=== PATIENT | male | born 1990 | race Caucasian/White ===

== ENCOUNTER 2022-11-07 10:40 | Emergency (ER) | payer BC, MEDICAID ==
[2022-11-07 12:16] LABS: ESTIMATED GFR 124 mL/min (>60)
== END 2022-11-07 12:45 | disposition home or self-care (01) ==
LOC: JP.ED 10:40
DX: R20.2 Paresthesia of skin (principal); Z88.5 Allergy status to narcotic agent; Z72.0 Tobacco use
CPT/HCPCS: 36415; 80053; 83605; 85025; 86140; 99283; 99284

== ENCOUNTER 2022-12-11 09:01 | Emergency (ER) | payer OTHER, BC, MEDICAID | END 2022-12-11 11:05 | disposition home or self-care (01) | LOC: JP.ED 09:01 | DX: S22.42XA Multiple fractures of ribs, left side, initial encounter for closed fracture (principal); Z88.5 Allergy status to narcotic agent | CPT/HCPCS: 71250; 99283 ==

== ENCOUNTER 2023-04-18 11:27 | Emergency (ER) | payer BC, MEDICAID | END 2023-04-18 12:56 | LOC: JP.ED 11:27 | DX: Z53.21 Procedure and treatment not carried out due to patient leaving prior to being seen by health care provider (principal) ==

== ENCOUNTER 2023-04-18 12:49 | Emergency (ER) | payer BC, MEDICAID | END 2023-04-18 15:18 | disposition home or self-care (01) | LOC: JP.ED 12:49 | DX: M79.672 Pain in left foot (principal); Z88.5 Allergy status to narcotic agent | CPT/HCPCS: 73630-26-LT; 73630-LT; 99283 ==

== ENCOUNTER 2024-03-23 08:10 | Day surgery (SDC) | payer BC, MEDICAID ==
[2024-03-23] MEDS ORDERED: fentaNYL 50 MCG/ML SDV ONE (08:35)
[2024-03-23] MEDS ORDERED: Midazolam 1 MG/ML 2 ML SDV ONE (08:35)
[2024-03-23] MEDS ORDERED: Propofol 200 MG/20 ML SDV ONE (08:35)
[2024-03-23] MEDS: Lactated Ringers 1,000 ML IV ONE (08:59)
[2024-03-23] MEDS: Cyanocobalamin (Vitamin B12) 1,000 MCG/ML SDV IM ONE (09:28)
[2024-03-23] MEDS: MVI, Adult with Vitamin K 10 ML, Thiamine 200 MG, Zinc/Copper/Manganese/Selenium 1 ML i... IV ONE (10:00)
== END 2024-03-23 12:20 | disposition home or self-care (01) ==
LOC: JP.SDS 08:10
PROVIDERS: ATTEND Surgery
DX: R13.10 Dysphagia, unspecified (principal); G47.33 Obstructive sleep apnea (adult) (pediatric); F17.200 Nicotine dependence, unspecified, uncomplicated; Z98.84 Bariatric surgery status
CPT/HCPCS: 00731; 01922; 43239; 88305; C1726; J2250; J2704; J3010; J3411; J3420; J7120; J3490